=== PATIENT | female | born 1950 | race Two or more races ===

== ENCOUNTER → 2016-02-27 | Outpatient (CLI) | payer BC, OTHER ==
[2016-02-27 08:57] LABS: CHOLESTEROL 233.27 mg/dL (0-200); Direct HDL 108 mg/dL (>40); TRIGLYCERIDES 60 mg/dL (<150)
[2016-02-27 09:08] LABS: DIRECT LDL 88 mg/dL (<100)
== END ==
LOC: OD 07:10
PROVIDERS: ATTEND Internal Medicine
DX: E78.5 Hyperlipidemia, unspecified (principal)
CPT/HCPCS: 36415; 80061

== ENCOUNTER → 2016-06-04 | Outpatient (CLI) | payer BC, OTHER ==
[2016-06-04 08:57] LABS: ANION GAP 12 (5-19); BLOOD UREA NITROGEN 22 mg/dL (7-20); CALCIUM 9.5 mg/dL (8.4-10.2); CARBON DIOXIDE 32 mmol/L (22-30); CHLORIDE 96 mmol/L (98-107); CREATININE RESULT 1.03 mg/dL (0.52-1.25); GLUCOSE 88 mg/dL (75-110); MAGNESIUM 1.9 mg/dL (1.6-2.3); POTASSIUM 4.1 mmol/L (3.6-5.0); SODIUM 140.2 mmol/L (137-145)
== END ==
LOC: OD 07:05
PROVIDERS: ATTEND Internal Medicine Nephrology
DX: N18.2 Chronic kidney disease, stage 2 (mild) (principal); E87.6 Hypokalemia; E83.42 Hypomagnesemia
CPT/HCPCS: 36415; 80048; 83735

== ENCOUNTER → 2016-09-29 | Outpatient (CLI) | payer BC, MEDICARE, OTHER ==
[2016-09-29 08:14] LABS: ABSOLUTE EOSINOPHILS # (AUTO) 0.2 10^3/uL (0.0-0.6); ABSOLUTE LYMPHOCYTES (AUTO) 1.7 10^3/uL (0.5-4.7); ABSOLUTE MONOCYTES (AUTO) 0.3 10^3/uL (0.1-1.4); ABSOLUTE NEUT (AUTO) 1.2 10^3/uL (1.7-8.2); BASOPHILS % (AUTO) 1.1 % (0-2); EOSINOPHILS % (AUTO) 6.2 % (0-6); HEMATOCRIT 31.9 % (36.0-47.0); HEMOGLOBIN 10.6 g/dL (12.0-15.5); HGB HCT DIFFERENCE -0.1; MEAN CORPUSCULAR HEMOGLOBIN 28.8 pg (27.0-33.4); MEAN CORPUSCULAR HGB CONC 33.2 g/dL (32.0-36.0); MEAN CORPUSCULAR VOLUME 87 fl (80-97); MONOCYTES % (AUTO) 9.2 % (3-13); RED BLOOD COUNT 3.68 10^6/uL (3.72-5.28); RED CELL DISTRIBUTION WIDTH 14.3 % (11.5-14.0); SEGMENTED NEUTROPHILS % (AUTO) 34.5 % (42-78); WHITE BLOOD COUNT 3.5 10^3/uL (4.0-10.5)
[2016-09-29 08:43] LABS: ALANINE AMINOTRANSFERASE 24 U/L (9-52); ALBUMIN 4.1 g/dL (3.5-5.0); ALKALINE PHOSPHATASE 71 U/L (38-126); ANION GAP 10 (5-19); ASPARTATE AMINO TRANSFERASE 22 U/L (14-36); BILIRUBIN,DIRECT 0.3 mg/dL (0.0-0.4); BILIRUBIN,TOTAL 0.5 mg/dL (0.2-1.3); BLOOD UREA NITROGEN 15 mg/dL (7-20); CALCIUM 9.4 mg/dL (8.4-10.2); CARBON DIOXIDE 30 mmol/L (22-30); CHLORIDE 99 mmol/L (98-107); CHOLESTEROL 254.35 mg/dL (0-200); CREATININE RESULT 0.98 mg/dL (0.52-1.25); Direct HDL 102 mg/dL (>40); GLUCOSE 84 mg/dL (75-110); MAGNESIUM 1.8 mg/dL (1.6-2.3); POTASSIUM 3.9 mmol/L (3.6-5.0); SODIUM 138.5 mmol/L (137-145); TOTAL PROTEIN 6.8 g/dL (6.3-8.2); TRIGLYCERIDES 80 mg/dL (<150)
[2016-09-29 08:54] LABS: DIRECT LDL 109 mg/dL (<100)
== END ==
LOC: OD 07:08
PROVIDERS: ATTEND Family Medicine Geriatric Medicine
DX: I10 Essential (primary) hypertension (principal); E78.5 Hyperlipidemia, unspecified; E87.6 Hypokalemia; Z79.899 Other long term (current) drug therapy
CPT/HCPCS: 36415; 80053; 80061; 82306; 83735; 84443; 85025

== ENCOUNTER → 2016-10-07 | Outpatient (CLI) | payer BC, MEDICARE, OTHER ==
[2016-10-07 20:42] LABS: FERRITIN 9.23 ng/mL (11.1-264.0)
== END ==
LOC: OD 17:07
PROVIDERS: ATTEND Family Medicine Geriatric Medicine
DX: D64.9 Anemia, unspecified (principal); Z79.899 Other long term (current) drug therapy
CPT/HCPCS: 36415; 82272; 82728; 83540; 83550; 84466; 85045

== ENCOUNTER → 2016-11-30 | Outpatient (CLI) | payer BC, MEDICARE, OTHER ==
[2016-11-30 08:02] LABS: HEMATOCRIT 35.1 % (36.0-47.0); HEMOGLOBIN 11.6 g/dL (12.0-15.5); HGB HCT DIFFERENCE -0.3; MEAN CORPUSCULAR HEMOGLOBIN 27.6 pg (27.0-33.4); MEAN CORPUSCULAR HGB CONC 33.1 g/dL (32.0-36.0); MEAN CORPUSCULAR VOLUME 83 fl (80-97); RED BLOOD COUNT 4.22 10^6/uL (3.72-5.28); RED CELL DISTRIBUTION WIDTH 16.3 % (11.5-14.0); WHITE BLOOD COUNT 4.9 10^3/uL (4.0-10.5)
[2016-11-30 08:07] LABS: APPEARANCE,URINE CLEAR; BILIRUBIN,URINE NEGATIVE (NEGATIVE); GLUCOSE, URINE NEGATIVE (NEGATIVE); KETONES,URINE NEGATIVE (NEGATIVE); LEUKOCYTE ESTERASE,URINE TRACE (NEGATIVE); NITRITE,URINE NEGATIVE (NEGATIVE); PROTEIN,URINE NEGATIVE (NEGATIVE); URINE SPECIFIC GRAVITY 1.011; UROBILINOGEN,URINE NEGATIVE mg/dL (<2.0)
[2016-11-30 08:34] LABS: ANION GAP 10 (5-19); BLOOD UREA NITROGEN 24 mg/dL (7-20); CALCIUM 9.6 mg/dL (8.4-10.2); CARBON DIOXIDE 34 mmol/L (22-30); CHLORIDE 98 mmol/L (98-107); CREATININE RESULT 1.01 mg/dL (0.52-1.25); GLUCOSE 89 mg/dL (75-110); POTASSIUM 3.2 mmol/L (3.6-5.0); SODIUM 142.3 mmol/L (137-145)
== END ==
LOC: OD 07:18
PROVIDERS: ATTEND Internal Medicine Nephrology
DX: I12.9 Hypertensive chronic kidney disease with stage 1 through stage 4 chronic kidney disease, or unspecified chronic kidney disease (principal); N18.2 Chronic kidney disease, stage 2 (mild); E87.6 Hypokalemia
CPT/HCPCS: 36415; 80048; 81001; 83735; 85027

== ENCOUNTER → 2017-01-04 | Outpatient (CLI) | payer BC, MEDICARE, OTHER ==
[2017-01-04 09:01] LABS: ALANINE AMINOTRANSFERASE 51 U/L (9-52); ASPARTATE AMINO TRANSFERASE 69 U/L (14-36); CHOLESTEROL 252.28 mg/dL (0-200); TRIGLYCERIDES 61 mg/dL (<150)
[2017-01-04 09:12] LABS: DIRECT LDL 101 mg/dL (<100)
[2017-01-04 09:19] LABS: ABSOLUTE EOSINOPHILS # (AUTO) 0.2 10^3/uL (0.0-0.6); ABSOLUTE LYMPHOCYTES (AUTO) 1.8 10^3/uL (0.5-4.7); ABSOLUTE MONOCYTES (AUTO) 0.3 10^3/uL (0.1-1.4); ABSOLUTE NEUT (AUTO) 1.8 10^3/uL (1.7-8.2); Direct HDL 129 mg/dL (>40); EOSINOPHILS % (AUTO) 5.3 % (0-6); HEMATOCRIT 37.9 % (36.0-47.0); HEMOGLOBIN 12.6 g/dL (12.0-15.5); HGB HCT DIFFERENCE -0.1; MEAN CORPUSCULAR HEMOGLOBIN 27.9 pg (27.0-33.4); MEAN CORPUSCULAR HGB CONC 33.4 g/dL (32.0-36.0); MEAN CORPUSCULAR VOLUME 84 fl (80-97); RED BLOOD COUNT 4.53 10^6/uL (3.72-5.28); RED CELL DISTRIBUTION WIDTH 16.9 % (11.5-14.0); SEGMENTED NEUTROPHILS % (AUTO) 42.7 % (42-78); WHITE BLOOD COUNT 4.2 10^3/uL (4.0-10.5)
== END ==
LOC: OD 07:34
PROVIDERS: ATTEND Family Medicine Geriatric Medicine
DX: D64.9 Anemia, unspecified (principal); N64.4 Mastodynia; E78.5 Hyperlipidemia, unspecified; Z79.899 Other long term (current) drug therapy
CPT/HCPCS: 36415; 80061; 84450; 84460; 85025

== ENCOUNTER → 2017-02-24 | Outpatient (CLI) | payer BC, MEDICARE, OTHER ==
--- NOTE | 2017-02-24 13:02 | RADIOLOGY REPORT (SQ) ---
EXAM DESCRIPTION: C SP 4 OR 5 VIEWS; SACRUM AND COCCYX; T SPINE AP/LAT; LUMBAR SPINE COMPLETE COMPLETED DATE/TIME: 02/24/2017 12:45 pm REASON FOR STUDY: CERVICALGIA; LOW BACK PAIN COMPARISON: None. FINDINGS: Five views cervical spine: Mild degenerative anterolisthesis at C7-T1. Pronounced disc s pace narrowing at C3-4 C5-6 and C6-7. C7-T1 facet arthropathy with narrowing and sclerosis. Left fo raminal stenosis at C5-6. Right foraminal stenosis at C5-6. Two views thoracic spine: Subtle S-shaped scoliosis. Mild multilevel disc space narrowing with small osteophytes. No fracture or bone lesion. Normal soft tissues. Five views lumbosacral spine including obliques: Mild convex right scoliotic curve. Multilevel disc space narrowing with endplate sclerosis and prominent osteophytes. No pars defect. Facet arthropat hy is present. Three views sacrum and coccyx: SI joints with evidence of degenerative narrowing and sclerosis but n o overt erosions. Probable ankylosis on the right. No sacral fracture or displaced coccyx fracture. IMPRESSION: 1. Cervical spondylosis. 2. Thoracic scoliosis and spondylosis. 3. Lumbar scoliosis a nd spondylosis. 4. SI joint arthropathy, likely degenerative. TECHNICAL DOCUMENTATION: JOB ID: [id number]
== END ==
LOC: OD 12:00
PROVIDERS: ATTEND Family Medicine Geriatric Medicine
DX: M54.2 Cervicalgia (principal); M54.5 Low back pain; M47.892 Other spondylosis, cervical region; M47.894 Other spondylosis, thoracic region; M47.896 Other spondylosis, lumbar region; M41.86 Other forms of scoliosis, lumbar region; M41.84 Other forms of scoliosis, thoracic region
CPT/HCPCS: 72050; 72070; 72110; 72220

== ENCOUNTER → 2017-04-07 | Outpatient (CLI) | payer BC, MEDICARE, OTHER ==
[2017-04-07 08:10] LABS: ABSOLUTE BASOPHILS # (AUTO) 0.1 10^3/uL (0.0-0.2); ABSOLUTE EOSINOPHILS # (AUTO) 0.3 10^3/uL (0.0-0.6); ABSOLUTE LYMPHOCYTES (AUTO) 1.8 10^3/uL (0.5-4.7); ABSOLUTE MONOCYTES (AUTO) 0.3 10^3/uL (0.1-1.4); ABSOLUTE NEUT (AUTO) 1.8 10^3/uL (1.7-8.2); BASOPHILS % (AUTO) 1.3 % (0-2); EOSINOPHILS % (AUTO) 7.5 % (0-6); HEMATOCRIT 36.9 % (36.0-47.0); HEMOGLOBIN 12.4 g/dL (12.0-15.5); LYMPHOCYTES % (AUTO) 41.4 % (13-45); MEAN CORPUSCULAR HEMOGLOBIN 29.3 pg (27.0-33.4); MEAN CORPUSCULAR HGB CONC 33.7 g/dL (32.0-36.0); MEAN CORPUSCULAR VOLUME 87 fl (80-97); MONOCYTES % (AUTO) 7.9 % (3-13); PLATELET COUNT 252 10^3/uL (150-450); RED BLOOD COUNT 4.25 10^6/uL (3.72-5.28); RED CELL DISTRIBUTION WIDTH 13.9 % (11.5-14.0); SEGMENTED NEUTROPHILS % (AUTO) 41.9 % (42-78); TOTAL CELLS COUNTED % (AUTO) 100 %; WHITE BLOOD COUNT 4.4 10^3/uL (4.0-10.5)
[2017-04-07 08:31] LABS: ALANINE AMINOTRANSFERASE 25 U/L (9-52); ASPARTATE AMINO TRANSFERASE 31 U/L (14-36); CHOLESTEROL 231.53 mg/dL (0-200); TRIGLYCERIDES 69 mg/dL (<150)
[2017-04-07 08:43] LABS: DIRECT LDL 103 mg/dL (<100)
== END ==
LOC: OD 07:09
PROVIDERS: ATTEND Family Medicine Geriatric Medicine
DX: I10 Essential (primary) hypertension (principal); E78.5 Hyperlipidemia, unspecified; D50.9 Iron deficiency anemia, unspecified; R79.89 Other specified abnormal findings of blood chemistry; Z79.899 Other long term (current) drug therapy
CPT/HCPCS: 36415; 80061; 84450; 84460; 85025

== ENCOUNTER → 2017-06-04 | Outpatient (CLI) | payer BC, MEDICARE, OTHER ==
[2017-06-04 08:17] LABS: HEMATOCRIT 40.5 % (36.0-47.0); HEMOGLOBIN 13.8 g/dL (12.0-15.5); MEAN CORPUSCULAR HEMOGLOBIN 29.8 pg (27.0-33.4); MEAN CORPUSCULAR VOLUME 88 fl (80-97); PLATELET COUNT 230 10^3/uL (150-450); RED BLOOD COUNT 4.63 10^6/uL (3.72-5.28); RED CELL DISTRIBUTION WIDTH 13.9 % (11.5-14.0); WHITE BLOOD COUNT 4.3 10^3/uL (4.0-10.5)
[2017-06-04 08:57] LABS: ALANINE AMINOTRANSFERASE 39 U/L (9-52); ANION GAP 9 (5-19); ASPARTATE AMINO TRANSFERASE 37 U/L (14-36); BLOOD UREA NITROGEN 23 mg/dL (7-20); CALCIUM 10.1 mg/dL (8.4-10.2); CARBON DIOXIDE 39 mmol/L (22-30); CHLORIDE 92 mmol/L (98-107); CHOLESTEROL 242.15 mg/dL (0-200); GLUCOSE 108 mg/dL (75-110); SODIUM 139.8 mmol/L (137-145); TRIGLYCERIDES 68 mg/dL (<150)
[2017-06-04 09:08] LABS: DIRECT LDL 88 mg/dL (<100)
[2017-06-04 09:21] LABS: POTASSIUM 2.9 mmol/L (3.6-5.0)
[2017-06-04 09:32] LABS: ANION GAP 9 (5-19); BLOOD UREA NITROGEN 23 mg/dL (7-20); CALCIUM 10.1 mg/dL (8.4-10.2); CARBON DIOXIDE 39 mmol/L (22-30); CHLORIDE 92 mmol/L (98-107); GLUCOSE 108 mg/dL (75-110); SODIUM 139.8 mmol/L (137-145)
[2017-06-04 09:35] LABS: POTASSIUM 2.9 mmol/L (3.6-5.0)
== END ==
LOC: OD 07:11
PROVIDERS: ATTEND Internal Medicine Nephrology
DX: I12.9 Hypertensive chronic kidney disease with stage 1 through stage 4 chronic kidney disease, or unspecified chronic kidney disease (principal); N18.2 Chronic kidney disease, stage 2 (mild); E83.42 Hypomagnesemia; E87.6 Hypokalemia; R06.02 Shortness of breath; E78.5 Hyperlipidemia, unspecified; Z79.899 Other long term (current) drug therapy
CPT/HCPCS: 36415; 80048; 80061; 83735; 83880; 84443; 84450; 84460; 85027

== ENCOUNTER → 2017-06-07 | Outpatient (CLI) | payer BC, MEDICARE, OTHER | LOC: OD 07:20 | PROVIDERS: ATTEND Family Medicine Geriatric Medicine | DX: E87.6 Hypokalemia (principal) | CPT/HCPCS: 36415; 83735; 84132 ==

== ENCOUNTER → 2017-06-11 | Outpatient (CLI) | payer OTHER, MEDICARE ==
--- NOTE | 2017-06-11 15:46 | RADIOLOGY REPORT (SQ) ---
EXAM DESCRIPTION: CT ABD/PELVIS NO ORAL OR IV COMPLETED DATE/TIME: 06/11/2017 2:43 pm REASON FOR STUDY: R10.9 UNSPECIFIED ABDOMINAL PAIN R10.9 UNSPECIFIED ABDOMINAL PAIN COMPARISON: None. TECHNIQUE: CT scan of the abdomen and pelvis performed without intravenous or oral contrast. Images reviewed with lung, soft tissue, and bone windows. Reconstructed coronal and sagittal MPR images revi ewed. All images stored on PACS. All CT scanners at this facility use dose modulation, iterative reconstruction, and/or weight based d osing when appropriate to reduce radiation dose to as low as reasonably achievable (ALARA). [facility]: Dose Right [facility]: CareDose [facility]: Dose Right [facility]: Teradose 4D [facility]: Smart iSites RADIATION DOSE: CT Rad equipment meets quality standard of care and radiation dose reduction techniq ues were employed. CTDIvol: 6.0 mGy. DLP: 304 mGy-cm.mGy. LIMITATIONS: None. FINDINGS: LOWER CHEST: No significant findings. No nodules or infiltrates. NON-CONTRASTED LIVER, SPLEEN, ADRENALS: Evaluation limited by lack of IV contrast. No identified sign ificant masses. PANCREAS: No masses. No peripancreatic inflammatory changes. GALLBLADDER: Surgically absent. RIGHT KIDNEY AND URETER: No suspicious masses. Assessment limited by lack of IV contrast. No signif icant calcifications. No hydronephrosis or hydroureter. LEFT KIDNEY AND URETER: No suspicious masses. Assessment limited by lack of IV contrast. No signifi cant calcifications. No hydronephrosis or hydroureter. AORTA AND RETROPERITONEUM: No aneurysm. No retroperitoneal masses or adenopathy. BOWEL AND PERITONEAL CAVITY: No obvious masses or inflammatory changes. No free fluid. APPENDIX: Not visualized. PELVIS, BLADDER, AND ABDOMINAL WALL:No abnormal masses. No free fluid. Bladder normal. BONES: No significant findings. OTHER: No other significant finding. IMPRESSION: NO ACUTE PROCESS IN THE ABDOMEN OR PELVIS. COMMENT: Quality ID # [id number]: Final reports with documentation of one or more dose reduction techniques (e.g., Automated exposure control, adjustment of the mA and/or kV according to patient size, use of iterative reconstruction technique) TECHNICAL DOCUMENTATION: JOB ID: [id number] [employer]- All Rights Reserved Reading location - IP/workstation name: [facility], [facility]
== END ==
LOC: RAD 14:22
PROVIDERS: ATTEND Family Medicine Geriatric Medicine
DX: R10.9 Unspecified abdominal pain (principal)
CPT/HCPCS: 74176

== ENCOUNTER → 2017-06-16 | Outpatient (CLI) | payer OTHER, MEDICARE ==
[2017-06-16 08:52] LABS: ANION GAP 12 (5-19); BLOOD UREA NITROGEN 25 mg/dL (7-20); CALCIUM 9.4 mg/dL (8.4-10.2); CARBON DIOXIDE 36 mmol/L (22-30); CHLORIDE 98 mmol/L (98-107); GLUCOSE 97 mg/dL (75-110); POTASSIUM 3.6 mmol/L (3.6-5.0); SODIUM 146.2 mmol/L (137-145)
== END ==
LOC: OD 07:25
PROVIDERS: ATTEND Internal Medicine Nephrology
DX: N18.2 Chronic kidney disease, stage 2 (mild) (principal); E87.6 Hypokalemia; E83.42 Hypomagnesemia
CPT/HCPCS: 36415; 80048; 83735

== ENCOUNTER → 2017-06-23 | Outpatient (CLI) | payer BC, MEDICARE, OTHER ==
[2017-06-23 08:50] LABS: ANION GAP 11 (5-19); BLOOD UREA NITROGEN 21 mg/dL (7-20); CALCIUM 9.4 mg/dL (8.4-10.2); CARBON DIOXIDE 27 mmol/L (22-30); CHLORIDE 104 mmol/L (98-107); GLUCOSE 103 mg/dL (75-110); POTASSIUM 3.8 mmol/L (3.6-5.0); SODIUM 142.1 mmol/L (137-145)
[2017-06-23 09:45] LABS: ALANINE AMINOTRANSFERASE 34 U/L (9-52); ASPARTATE AMINO TRANSFERASE 30 U/L (14-36); CHOLESTEROL 180.82 mg/dL (0-200); POTASSIUM 3.8 mmol/L (3.6-5.0); TRIGLYCERIDES 78 mg/dL (<150)
[2017-06-23 09:56] LABS: DIRECT LDL 58 mg/dL (<100)
== END ==
LOC: OD 07:09
PROVIDERS: ATTEND Internal Medicine Nephrology
DX: N18.2 Chronic kidney disease, stage 2 (mild) (principal); E87.6 Hypokalemia; E83.42 Hypomagnesemia; E78.5 Hyperlipidemia, unspecified
CPT/HCPCS: 36415; 80048; 80061; 83735; 84132; 84450; 84460

== ENCOUNTER → 2017-06-30 | Outpatient (CLI) | payer BC, MEDICARE, OTHER ==
[2017-06-30 08:42] LABS: ANION GAP 7 (5-19); BLOOD UREA NITROGEN 12 mg/dL (7-20); CALCIUM 9.5 mg/dL (8.4-10.2); CARBON DIOXIDE 28 mmol/L (22-30); CHLORIDE 107 mmol/L (98-107); GLUCOSE 83 mg/dL (75-110); POTASSIUM 4.4 mmol/L (3.6-5.0); SODIUM 142.2 mmol/L (137-145)
== END ==
LOC: OD 07:07
PROVIDERS: ATTEND Internal Medicine Nephrology
DX: N18.2 Chronic kidney disease, stage 2 (mild) (principal); E87.6 Hypokalemia; E83.42 Hypomagnesemia
CPT/HCPCS: 36415; 80048; 83735

== ENCOUNTER → 2017-07-07 | Outpatient (CLI) | payer BC, MEDICARE, OTHER ==
[2017-07-07 09:07] LABS: ANION GAP 9 (5-19); BLOOD UREA NITROGEN 18 mg/dL (7-20); CALCIUM 9.3 mg/dL (8.4-10.2); CARBON DIOXIDE 31 mmol/L (22-30); CHLORIDE 104 mmol/L (98-107); GLUCOSE 81 mg/dL (75-110); POTASSIUM 3.8 mmol/L (3.6-5.0); SODIUM 144.2 mmol/L (137-145)
== END ==
LOC: OD 07:14
PROVIDERS: ATTEND Internal Medicine Nephrology
DX: N18.2 Chronic kidney disease, stage 2 (mild) (principal); E87.6 Hypokalemia; E83.42 Hypomagnesemia
CPT/HCPCS: 36415; 80048; 83735

== ENCOUNTER → 2017-07-20 | Outpatient (CLI) | payer BC, MEDICARE, OTHER ==
[2017-07-20 08:26] LABS: POTASSIUM 3.7 mmol/L (3.6-5.0)
== END ==
LOC: OD 07:11
PROVIDERS: ATTEND Internal Medicine Nephrology
DX: I12.9 Hypertensive chronic kidney disease with stage 1 through stage 4 chronic kidney disease, or unspecified chronic kidney disease (principal); N18.2 Chronic kidney disease, stage 2 (mild); E87.5 Hyperkalemia; E83.42 Hypomagnesemia
CPT/HCPCS: 36415; 83735; 84132

== ENCOUNTER → 2017-08-03 | Outpatient (CLI) | payer BC, MEDICARE, OTHER ==
[2017-08-03 09:01] LABS: POTASSIUM 4.3 mmol/L (3.6-5.0)
== END ==
LOC: OD 07:24
PROVIDERS: ATTEND Internal Medicine Nephrology
DX: I12.9 Hypertensive chronic kidney disease with stage 1 through stage 4 chronic kidney disease, or unspecified chronic kidney disease (principal); N18.2 Chronic kidney disease, stage 2 (mild); E87.5 Hyperkalemia; E83.42 Hypomagnesemia
CPT/HCPCS: 36415; 83735; 84132

== ENCOUNTER → 2017-08-17 | Outpatient (CLI) | payer BC, MEDICARE, OTHER ==
[2017-08-17 09:10] LABS: POTASSIUM 4.2 mmol/L (3.6-5.0)
== END ==
LOC: OD 07:25
PROVIDERS: ATTEND Internal Medicine Nephrology
DX: I12.9 Hypertensive chronic kidney disease with stage 1 through stage 4 chronic kidney disease, or unspecified chronic kidney disease (principal); N18.2 Chronic kidney disease, stage 2 (mild); E87.5 Hyperkalemia; E83.42 Hypomagnesemia
CPT/HCPCS: 36415; 83735; 84132

== ENCOUNTER → 2017-08-31 | Outpatient (CLI) | payer BC, MEDICARE, OTHER ==
[2017-08-31 08:24] LABS: HEMATOCRIT 36.8 % (36.0-47.0); HEMOGLOBIN 12.7 g/dL (12.0-15.5); MEAN CORPUSCULAR HEMOGLOBIN 30.5 pg (27.0-33.4); MEAN CORPUSCULAR HGB CONC 34.4 g/dL (32.0-36.0); MEAN CORPUSCULAR VOLUME 89 fl (80-97); PLATELET COUNT 218 10^3/uL (150-450); RED BLOOD COUNT 4.15 10^6/uL (3.72-5.28); RED CELL DISTRIBUTION WIDTH 13.8 % (11.5-14.0); WHITE BLOOD COUNT 4.6 10^3/uL (4.0-10.5)
[2017-08-31 08:34] LABS: APPEARANCE,URINE TURBID; BILIRUBIN,URINE NEGATIVE (NEGATIVE); GLUCOSE, URINE NEGATIVE (NEGATIVE); KETONES,URINE NEGATIVE (NEGATIVE); LEUKOCYTE ESTERASE,URINE SMALL (NEGATIVE); NITRITE,URINE NEGATIVE (NEGATIVE); PROTEIN,URINE NEGATIVE (NEGATIVE); URINE SPECIFIC GRAVITY 1.025; UROBILINOGEN,URINE NEGATIVE mg/dL (<2.0)
[2017-08-31 08:43] LABS: COLOR,URINE YELLOW
[2017-08-31 08:44] LABS: ALANINE AMINOTRANSFERASE 33 U/L (9-52); ALBUMIN 3.8 g/dL (3.5-5.0); ALKALINE PHOSPHATASE 72 U/L (38-126); ANION GAP 9 (5-19); ASPARTATE AMINO TRANSFERASE 39 U/L (14-36); BILIRUBIN,DIRECT 0.2 mg/dL (0.0-0.4); BILIRUBIN,TOTAL 0.6 mg/dL (0.2-1.3); BLOOD UREA NITROGEN 15 mg/dL (7-20); CARBON DIOXIDE 29 mmol/L (22-30); CHLORIDE 103 mmol/L (98-107); GLUCOSE 81 mg/dL (75-110); POTASSIUM 3.6 mmol/L (3.6-5.0); SODIUM 140.9 mmol/L (137-145); TOTAL PROTEIN 6.4 g/dL (6.3-8.2)
== END ==
LOC: OD 07:10
PROVIDERS: ATTEND Internal Medicine Nephrology
DX: I12.9 Hypertensive chronic kidney disease with stage 1 through stage 4 chronic kidney disease, or unspecified chronic kidney disease (principal); N18.2 Chronic kidney disease, stage 2 (mild); E87.5 Hyperkalemia
CPT/HCPCS: 36415; 80053; 81001; 83735; 85027

== ENCOUNTER → 2017-10-02 | Outpatient (CLI) | payer BC, MEDICARE, OTHER | LOC: OD 10:43 | PROVIDERS: ATTEND Internal Medicine Nephrology | DX: N18.2 Chronic kidney disease, stage 2 (mild) (principal); E87.5 Hyperkalemia; Z53.9 Procedure and treatment not carried out, unspecified reason ==

== ENCOUNTER → 2017-10-04 | Outpatient (CLI) | payer BC, MEDICARE, OTHER | LOC: OD 12:04 | PROVIDERS: ATTEND Internal Medicine Nephrology | DX: N18.2 Chronic kidney disease, stage 2 (mild) (principal); E87.5 Hyperkalemia | CPT/HCPCS: 36415; 84132 ==

== ENCOUNTER → 2017-10-15 | Outpatient (CLI) | payer MEDICARE, OTHER, BC | LOC: LAB 08:14 | PROVIDERS: ATTEND Internal Medicine | DX: N19 Unspecified kidney failure (principal) | CPT/HCPCS: 36415; 82565 ==

== ENCOUNTER → 2017-12-02 | Outpatient (CLI) | payer BC, OTHER, MEDICARE ==
[2017-12-02 08:23] LABS: ABSOLUTE EOSINOPHILS # (AUTO) 0.2 10^3/uL (0.0-0.6); ABSOLUTE LYMPHOCYTES (AUTO) 1.5 10^3/uL (0.5-4.7); ABSOLUTE MONOCYTES (AUTO) 0.3 10^3/uL (0.1-1.4); ABSOLUTE NEUT (AUTO) 1.6 10^3/uL (1.7-8.2); BASOPHILS % (AUTO) 0.8 % (0-2); EOSINOPHILS % (AUTO) 4.9 % (0-6); HEMATOCRIT 39.9 % (36.0-47.0); HEMOGLOBIN 13.6 g/dL (12.0-15.5); LYMPHOCYTES % (AUTO) 40.6 % (13-45); MEAN CORPUSCULAR HEMOGLOBIN 30.2 pg (27.0-33.4); MEAN CORPUSCULAR VOLUME 89 fl (80-97); MONOCYTES % (AUTO) 9.2 % (3-13); PLATELET COUNT 222 10^3/uL (150-450); RED CELL DISTRIBUTION WIDTH 13.9 % (11.5-14.0); SEGMENTED NEUTROPHILS % (AUTO) 44.5 % (42-78); TOTAL CELLS COUNTED % (AUTO) 100 %; WHITE BLOOD COUNT 3.6 10^3/uL (4.0-10.5)
== END ==
LOC: OD 07:25
PROVIDERS: ATTEND Internal Medicine
DX: D64.9 Anemia, unspecified (principal); E03.9 Hypothyroidism, unspecified
CPT/HCPCS: 36415; 84443; 85025

== ENCOUNTER → 2017-12-04 | Outpatient (CLI) | payer BC, OTHER, MEDICARE | LOC: OD 08:05 | PROVIDERS: ATTEND Internal Medicine | DX: N18.2 Chronic kidney disease, stage 2 (mild) (principal); E87.5 Hyperkalemia | CPT/HCPCS: 36415; 84132 ==

== ENCOUNTER → 2017-12-30 | Outpatient (CLI) | payer BC, MEDICARE, OTHER ==
[2017-12-30 08:37] LABS: CHOLESTEROL 217.08 mg/dL (0-200); TRIGLYCERIDES 81 mg/dL (<150)
[2017-12-30 08:47] LABS: DIRECT LDL 103 mg/dL (<100)
== END ==
LOC: OD 07:11
PROVIDERS: ATTEND Internal Medicine
DX: E03.9 Hypothyroidism, unspecified (principal); E78.5 Hyperlipidemia, unspecified; E24.9 Cushing's syndrome, unspecified
CPT/HCPCS: 36415; 80061; 82024; 82533; 84443

== ENCOUNTER → 2018-01-04 | Outpatient (CLI) | payer BC, MEDICARE, OTHER | LOC: OD 07:13 | PROVIDERS: ATTEND Internal Medicine | DX: N18.2 Chronic kidney disease, stage 2 (mild) (principal); E87.5 Hyperkalemia | CPT/HCPCS: 36415; 84132 ==

== ENCOUNTER → 2018-02-03 | Outpatient (CLI) | payer BC, MEDICARE, OTHER | LOC: OD 07:12 | PROVIDERS: ATTEND Internal Medicine Nephrology | DX: N18.2 Chronic kidney disease, stage 2 (mild) (principal); E87.5 Hyperkalemia | CPT/HCPCS: 36415; 84132 ==

== ENCOUNTER → 2018-03-03 | Outpatient (CLI) | payer BC, MEDICARE, OTHER ==
[2018-03-03 08:32] LABS: APPEARANCE,URINE CLEAR; BILIRUBIN,URINE NEGATIVE (NEGATIVE); COLOR,URINE STRAW; GLUCOSE, URINE NEGATIVE (NEGATIVE); KETONES,URINE NEGATIVE (NEGATIVE); LEUKOCYTE ESTERASE,URINE NEGATIVE (NEGATIVE); NITRITE,URINE NEGATIVE (NEGATIVE); PROTEIN,URINE NEGATIVE (NEGATIVE); URINE SPECIFIC GRAVITY 1.006; UROBILINOGEN,URINE NEGATIVE mg/dL (<2.0)
[2018-03-03 08:43] LABS: HEMATOCRIT 38.9 % (36.0-47.0); MEAN CORPUSCULAR HEMOGLOBIN 29.8 pg (27.0-33.4); MEAN CORPUSCULAR HGB CONC 33.5 g/dL (32.0-36.0); MEAN CORPUSCULAR VOLUME 89 fl (80-97); PLATELET COUNT 216 10^3/uL (150-450); RED BLOOD COUNT 4.37 10^6/uL (3.72-5.28); RED CELL DISTRIBUTION WIDTH 13.8 % (11.5-14.0); WHITE BLOOD COUNT 3.8 10^3/uL (4.0-10.5)
[2018-03-03 09:19] LABS: CHOLESTEROL 202.67 mg/dL (0-200); TRIGLYCERIDES 55 mg/dL (<150)
[2018-03-03 09:21] LABS: ANION GAP 8 (5-19); BLOOD UREA NITROGEN 9 mg/dL (7-20); CALCIUM 8.9 mg/dL (8.4-10.2); CARBON DIOXIDE 34 mmol/L (22-30); CHLORIDE 98 mmol/L (98-107); GLUCOSE 90 mg/dL (75-110); POTASSIUM 3.3 mmol/L (3.6-5.0); SODIUM 139.5 mmol/L (137-145)
[2018-03-03 09:34] LABS: DIRECT LDL 72 mg/dL (<100)
== END ==
LOC: OD 07:09
PROVIDERS: ATTEND Internal Medicine Nephrology
DX: E83.42 Hypomagnesemia (principal); E87.6 Hypokalemia; N18.2 Chronic kidney disease, stage 2 (mild); I12.9 Hypertensive chronic kidney disease with stage 1 through stage 4 chronic kidney disease, or unspecified chronic kidney disease
CPT/HCPCS: 36415; 80048; 80061; 81001; 83735; 85027

== ENCOUNTER → 2018-04-09 | Outpatient (CLI) | payer MEDICARE, BC, OTHER ==
[2018-04-09 10:05] LABS: ANION GAP 8 (5-19); BLOOD UREA NITROGEN 11 mg/dL (7-20); CALCIUM 8.6 mg/dL (8.4-10.2); CARBON DIOXIDE 30 mmol/L (22-30); CHLORIDE 103 mmol/L (98-107); GLUCOSE 80 mg/dL (75-110); POTASSIUM 3.9 mmol/L (3.6-5.0)
== END ==
LOC: OD 08:09
PROVIDERS: ATTEND Internal Medicine Nephrology
DX: Z00.00 Encounter for general adult medical examination without abnormal findings (principal); N18.2 Chronic kidney disease, stage 2 (mild); E83.42 Hypomagnesemia; E87.6 Hypokalemia
CPT/HCPCS: 36415; 80048; 83735

== ENCOUNTER → 2018-06-02 | Outpatient (CLI) | payer BC, MEDICARE, OTHER ==
[2018-06-02 08:21] LABS: CHOLESTEROL 193.49 mg/dL (0-200); TRIGLYCERIDES 63 mg/dL (<150)
[2018-06-02 08:32] LABS: DIRECT LDL 73 mg/dL (<100)
== END ==
LOC: OD 07:09
PROVIDERS: ATTEND Internal Medicine
DX: E78.5 Hyperlipidemia, unspecified (principal)
CPT/HCPCS: 36415; 80061

== ENCOUNTER → 2018-06-30 | Outpatient (CLI) | payer BC, MEDICARE, OTHER ==
--- NOTE | 2018-06-30 08:46 | WOMENS IMAGING REPORT ---
EXAM DESCRIPTION: U/S BREAST UNILAT LIMITED COMPLETED DATE/TIME: 06/30/2018 7:55 am REASON FOR STUDY: R22.9;Z98.890 LEFT BREAST; R22.9;Z98.890 RIGHT BREAST R22.9 LOCALIZED SWELLING, M ASS AND LUMP, UNSPECIFIED COMPARISON: None. TECHNIQUE: Real-time and static grayscale imaging performed of the right and left breast targeted to the area of clinical/mammographic concern. Selected color Doppler images recorded. LIMITATIONS: None. FINDINGS: MASS: No mass identified. Normal glandular tissue. OTHER: No other significant finding. IMPRESSION: No suspicious findings detected by ultrasound. BIRAD: Negative. RECOMMENDATION: RECOMMENDED FOLLOW-UP: Follow-up as clinically indicated. COMMENT: The [employer] (A[employer]) has developed recommendations for screening MRI of the breasts in certain patient populations, to be used in conjunction with mammography. Breast MRI s urveillance may be appropriate for women with more than 20% lifetime risk of developing breast cancer as determined by genetic testing, significant family history of the disease, or history of mantle r adiation for Hodgkins Disease. ACR Practice Guidelines 2008. TECHNICAL DOCUMENTATION: JOB ID: [id number] [employer]- All Rights Reserved Reading location - IP/workstation name: [email or web address]
--- NOTE | 2018-06-30 08:46 | WOMENS IMAGING REPORT ---
EXAM DESCRIPTION: U/S BREAST UNILAT LIMITED COMPLETED DATE/TIME: 06/30/2018 7:55 am REASON FOR STUDY: R22.9;Z98.890 LEFT BREAST; R22.9;Z98.890 RIGHT BREAST R22.9 LOCALIZED SWELLING, M ASS AND LUMP, UNSPECIFIED COMPARISON: None. TECHNIQUE: Real-time and static grayscale imaging performed of the right and left breast targeted to the area of clinical/mammographic concern. Selected color Doppler images recorded. LIMITATIONS: None. FINDINGS: MASS: No mass identified. Normal glandular tissue. OTHER: No other significant finding. IMPRESSION: No suspicious findings detected by ultrasound. BIRAD: Negative. RECOMMENDATION: RECOMMENDED FOLLOW-UP: Follow-up as clinically indicated. COMMENT: The [employer] (A[employer]) has developed recommendations for screening MRI of the breasts in certain patient populations, to be used in conjunction with mammography. Breast MRI s urveillance may be appropriate for women with more than 20% lifetime risk of developing breast cancer as determined by genetic testing, significant family history of the disease, or history of mantle r adiation for Hodgkins Disease. [employer] Practice Guidelines 2008. TECHNICAL DOCUMENTATION: JOB ID: [id number] [employer]- All Rights Reserved Reading location - IP/workstation name: [email or web address]
== END ==
LOC: WI 08:16
PROVIDERS: ATTEND Surgery
DX: R22.9 Localized swelling, mass and lump, unspecified (principal); Z98.890 Other specified postprocedural states
CPT/HCPCS: 76642

== ENCOUNTER → 2018-08-25 | Outpatient (CLI) | payer BC, MEDICARE, OTHER ==
[2018-08-25 08:27] LABS: APPEARANCE,URINE CLEAR; BILIRUBIN,URINE NEGATIVE (NEGATIVE); COLOR,URINE YELLOW; GLUCOSE, URINE NEGATIVE (NEGATIVE); KETONES,URINE NEGATIVE (NEGATIVE); LEUKOCYTE ESTERASE,URINE NEGATIVE (NEGATIVE); NITRITE,URINE NEGATIVE (NEGATIVE); PROTEIN,URINE NEGATIVE (NEGATIVE); URINE SPECIFIC GRAVITY 1.021; UROBILINOGEN,URINE NEGATIVE mg/dL (<2.0)
[2018-08-25 08:32] LABS: TRIGLYCERIDES 70 mg/dL (<150)
[2018-08-25 08:33] LABS: ALANINE AMINOTRANSFERASE 23 U/L (9-52); ALBUMIN 3.7 g/dL (3.5-5.0); ALKALINE PHOSPHATASE 83 U/L (38-126); ASPARTATE AMINO TRANSFERASE 27 U/L (14-36); BILIRUBIN,DIRECT 0.2 mg/dL (0.0-0.4); BILIRUBIN,TOTAL 0.5 mg/dL (0.2-1.3); BLOOD UREA NITROGEN 10 mg/dL (7-20); CALCIUM 8.9 mg/dL (8.4-10.2); CHLORIDE 102 mmol/L (98-107); GLUCOSE 83 mg/dL (75-110); TOTAL PROTEIN 6.2 g/dL (6.3-8.2)
[2018-08-25 08:40] LABS: ABSOLUTE EOSINOPHILS # (AUTO) 0.3 10^3/uL (0.0-0.6); ABSOLUTE LYMPHOCYTES (AUTO) 2.1 10^3/uL (0.5-4.7); ABSOLUTE MONOCYTES (AUTO) 0.3 10^3/uL (0.1-1.4); ABSOLUTE NEUT (AUTO) 2.3 10^3/uL (1.7-8.2); BASOPHILS % (AUTO) 0.9 % (0-2); EOSINOPHILS % (AUTO) 5.5 % (0-6); HEMATOCRIT 38.5 % (36.0-47.0); HEMOGLOBIN 12.8 g/dL (12.0-15.5); LYMPHOCYTES % (AUTO) 41.5 % (13-45); MEAN CORPUSCULAR HGB CONC 33.3 g/dL (32.0-36.0); MEAN CORPUSCULAR VOLUME 90 fl (80-97); MONOCYTES % (AUTO) 6.6 % (3-13); PLATELET COUNT 199 10^3/uL (150-450); RED BLOOD COUNT 4.27 10^6/uL (3.72-5.28); RED CELL DISTRIBUTION WIDTH 13.8 % (11.5-14.0); SEGMENTED NEUTROPHILS % (AUTO) 45.5 % (42-78); TOTAL CELLS COUNTED % (AUTO) 100 %
[2018-08-25 08:42] LABS: CARBON DIOXIDE 31 mmol/L (22-30); DIRECT LDL 98 mg/dL (<100); POTASSIUM 4.2 mmol/L (3.6-5.0); SODIUM 137.2 mmol/L (137-145)
[2018-08-25 08:46] LABS: ANION GAP 4 (5-19)
== END ==
LOC: OD 07:14
PROVIDERS: ATTEND Internal Medicine
DX: N18.2 Chronic kidney disease, stage 2 (mild) (principal); E83.42 Hypomagnesemia; E87.6 Hypokalemia; E78.5 Hyperlipidemia, unspecified
CPT/HCPCS: 36415; 80053; 80061; 81001; 83735; 84132; 84443; 84480; 85025

== ENCOUNTER → 2019-02-04 | Outpatient (CLI) | payer BC, MEDICARE, OTHER ==
[2019-02-04 10:17] LABS: APPEARANCE,URINE CLEAR; BILIRUBIN,URINE NEGATIVE (NEGATIVE); COLOR,URINE YELLOW; GLUCOSE, URINE NEGATIVE (NEGATIVE); KETONES,URINE NEGATIVE (NEGATIVE); LEUKOCYTE ESTERASE,URINE NEGATIVE (NEGATIVE); NITRITE,URINE NEGATIVE (NEGATIVE); PROTEIN,URINE NEGATIVE (NEGATIVE); URINE SPECIFIC GRAVITY 1.005; UROBILINOGEN,URINE NEGATIVE mg/dL (<2.0)
[2019-02-04 10:37] LABS: ABSOLUTE EOSINOPHILS # (AUTO) 0.2 10^3/uL (0.0-0.6); ABSOLUTE LYMPHOCYTES (AUTO) 1.4 10^3/uL (0.5-4.7); ABSOLUTE MONOCYTES (AUTO) 0.2 10^3/uL (0.1-1.4); ABSOLUTE NEUT (AUTO) 1.8 10^3/uL (1.7-8.2); EOSINOPHILS % (AUTO) 4.8 % (0-6); HEMATOCRIT 39.3 % (36.0-47.0); HEMOGLOBIN 13.2 g/dL (12.0-15.5); LYMPHOCYTES % (AUTO) 39.2 % (13-45); MEAN CORPUSCULAR HEMOGLOBIN 30.2 pg (27.0-33.4); MEAN CORPUSCULAR HGB CONC 33.6 g/dL (32.0-36.0); MEAN CORPUSCULAR VOLUME 90 fl (80-97); MONOCYTES % (AUTO) 6.8 % (3-13); PLATELET COUNT 209 10^3/uL (150-450); RED BLOOD COUNT 4.38 10^6/uL (3.72-5.28); RED CELL DISTRIBUTION WIDTH 13.2 % (11.5-14.0); SEGMENTED NEUTROPHILS % (AUTO) 48.2 % (42-78); TOTAL CELLS COUNTED % (AUTO) 100 %; WHITE BLOOD COUNT 3.7 10^3/uL (4.0-10.5)
[2019-02-04 10:51] LABS: ALBUMIN 3.9 g/dL (3.5-5.0); ANION GAP 9 (5-19); BLOOD UREA NITROGEN 13 mg/dL (7-20); CALCIUM 9.7 mg/dL (8.4-10.2); CARBON DIOXIDE 31 mmol/L (22-30); CHLORIDE 100 mmol/L (98-107); GLUCOSE 87 mg/dL (75-110); POTASSIUM 3.8 mmol/L (3.6-5.0)
== END ==
LOC: OD 08:07
PROVIDERS: ATTEND Internal Medicine Nephrology
DX: I12.9 Hypertensive chronic kidney disease with stage 1 through stage 4 chronic kidney disease, or unspecified chronic kidney disease (principal); N18.2 Chronic kidney disease, stage 2 (mild); E87.6 Hypokalemia; E83.42 Hypomagnesemia
CPT/HCPCS: 36415; 80069; 81001; 83735; 85025

== ENCOUNTER → 2019-03-04 | Outpatient (CLI) | payer BC, MEDICARE, OTHER ==
[2019-03-04 09:34] LABS: ABSOLUTE EOSINOPHILS # (AUTO) 0.2 10^3/uL (0.0-0.6); ABSOLUTE LYMPHOCYTES (AUTO) 1.4 10^3/uL (0.5-4.7); ABSOLUTE MONOCYTES (AUTO) 0.3 10^3/uL (0.1-1.4); ABSOLUTE NEUT (AUTO) 1.9 10^3/uL (1.7-8.2); BASOPHILS % (AUTO) 1.1 % (0-2); EOSINOPHILS % (AUTO) 5.2 % (0-6); HEMATOCRIT 39.8 % (36.0-47.0); HEMOGLOBIN 13.3 g/dL (12.0-15.5); LYMPHOCYTES % (AUTO) 36.4 % (13-45); MEAN CORPUSCULAR HEMOGLOBIN 30.3 pg (27.0-33.4); MEAN CORPUSCULAR HGB CONC 33.4 g/dL (32.0-36.0); MEAN CORPUSCULAR VOLUME 91 fl (80-97); MONOCYTES % (AUTO) 7.6 % (3-13); PLATELET COUNT 195 10^3/uL (150-450); RED CELL DISTRIBUTION WIDTH 13.5 % (11.5-14.0); SEGMENTED NEUTROPHILS % (AUTO) 49.7 % (42-78); TOTAL CELLS COUNTED % (AUTO) 100 %; WHITE BLOOD COUNT 3.7 10^3/uL (4.0-10.5)
[2019-03-04 09:56] LABS: ANION GAP 6 (5-19); BLOOD UREA NITROGEN 15 mg/dL (7-20); CALCIUM 9.5 mg/dL (8.4-10.2); CARBON DIOXIDE 33 mmol/L (22-30); CHLORIDE 101 mmol/L (98-107); GLUCOSE 87 mg/dL (75-110); POTASSIUM 4.3 mmol/L (3.6-5.0)
== END ==
LOC: OD 08:11
PROVIDERS: ATTEND Family Medicine Geriatric Medicine
DX: E87.6 Hypokalemia (principal); E83.42 Hypomagnesemia; Z79.899 Other long term (current) drug therapy
CPT/HCPCS: 36415; 80048; 83735; 85025

== ENCOUNTER → 2019-08-09 | Outpatient (CLI) | payer BC, MEDICARE, OTHER ==
[2019-08-09 08:27] LABS: ABSOLUTE EOSINOPHILS # (AUTO) 0.2 10^3/uL (0.0-0.6); ABSOLUTE LYMPHOCYTES (AUTO) 1.3 10^3/uL (0.5-4.7); ABSOLUTE MONOCYTES (AUTO) 0.3 10^3/uL (0.1-1.4); ABSOLUTE NEUT (AUTO) 1.9 10^3/uL (1.7-8.2); BASOPHILS % (AUTO) 1.1 % (0-2); EOSINOPHILS % (AUTO) 5.4 % (0-6); HEMATOCRIT 39.5 % (36.0-47.0); LYMPHOCYTES % (AUTO) 33.5 % (13-45); MEAN CORPUSCULAR VOLUME 91 fl (80-97); PLATELET COUNT 165 10^3/uL (150-450); RED BLOOD COUNT 4.34 10^6/uL (3.72-5.28); RED CELL DISTRIBUTION WIDTH 13.6 % (11.5-14.0); TOTAL CELLS COUNTED % (AUTO) 100 %; WHITE BLOOD COUNT 3.8 10^3/uL (4.0-10.5)
[2019-08-09 08:54] LABS: CHOLESTEROL 214.02 mg/dL (0-200); TRIGLYCERIDES 90 mg/dL (<150)
[2019-08-09 09:05] LABS: DIRECT LDL 77 mg/dL (<100)
== END ==
LOC: OD 07:06
PROVIDERS: ATTEND Family Medicine Geriatric Medicine
DX: E78.5 Hyperlipidemia, unspecified (principal); E87.6 Hypokalemia; Z79.899 Other long term (current) drug therapy
CPT/HCPCS: 36415; 80061; 84460; 85025

== ENCOUNTER → 2019-10-14 | Outpatient (CLI) | payer BC, MEDICARE, OTHER ==
[2019-10-14 10:26] LABS: CHOLESTEROL 165.72 mg/dL (0-200); POTASSIUM 3.9 mmol/L (3.6-5.0); TRIGLYCERIDES 55 mg/dL (<150)
[2019-10-14 10:37] LABS: DIRECT LDL 55 mg/dL (<100)
== END ==
LOC: OD 09:01
PROVIDERS: ATTEND Family Medicine Geriatric Medicine
DX: E55.9 Vitamin D deficiency, unspecified (principal); E87.5 Hyperkalemia; E83.41 Hypermagnesemia; R78.5 Finding of other psychotropic drug in blood; Z79.899 Other long term (current) drug therapy
CPT/HCPCS: 36415; 80061; 82306; 83735; 84132; 84460

== ENCOUNTER → 2020-01-12 | Outpatient (CLI) | payer BC, MEDICARE, OTHER ==
[2020-01-12 08:50] LABS: ABSOLUTE EOSINOPHILS # (AUTO) 0.2 10^3/uL (0.0-0.6); ABSOLUTE LYMPHOCYTES (AUTO) 1.3 10^3/uL (0.5-4.7); ABSOLUTE MONOCYTES (AUTO) 0.4 10^3/uL (0.1-1.4); ABSOLUTE NEUT (AUTO) 2.1 10^3/uL (1.7-8.2); BASOPHILS % (AUTO) 0.7 % (0-2); EOSINOPHILS % (AUTO) 4.8 % (0-6); HEMATOCRIT 40.2 % (36.0-47.0); HEMOGLOBIN 13.1 g/dL (12.0-15.5); LYMPHOCYTES % (AUTO) 32.3 % (13-45); MEAN CORPUSCULAR HEMOGLOBIN 29.8 pg (27.0-33.4); MEAN CORPUSCULAR HGB CONC 32.5 g/dL (32.0-36.0); MEAN CORPUSCULAR VOLUME 92 fl (80-97); MONOCYTES % (AUTO) 9.2 % (3-13); PLATELET COUNT 185 10^3/uL (150-450); RED BLOOD COUNT 4.37 10^6/uL (3.72-5.28); RED CELL DISTRIBUTION WIDTH 13.4 % (11.5-14.0); TOTAL CELLS COUNTED % (AUTO) 100 %
[2020-01-12 08:55] LABS: ABSOLUTE EOSINOPHILS # (AUTO) 0.2 10^3/uL (0.0-0.6); ABSOLUTE LYMPHOCYTES (AUTO) 1.3 10^3/uL (0.5-4.7); ABSOLUTE MONOCYTES (AUTO) 0.4 10^3/uL (0.1-1.4); ABSOLUTE NEUT (AUTO) 2.1 10^3/uL (1.7-8.2); BASOPHILS % (AUTO) 0.7 % (0-2); EOSINOPHILS % (AUTO) 4.8 % (0-6); HEMATOCRIT 40.2 % (36.0-47.0); HEMOGLOBIN 13.1 g/dL (12.0-15.5); LYMPHOCYTES % (AUTO) 32.3 % (13-45); MEAN CORPUSCULAR HEMOGLOBIN 29.8 pg (27.0-33.4); MEAN CORPUSCULAR HGB CONC 32.5 g/dL (32.0-36.0); MEAN CORPUSCULAR VOLUME 92 fl (80-97); MONOCYTES % (AUTO) 9.2 % (3-13); PLATELET COUNT 185 10^3/uL (150-450); RED BLOOD COUNT 4.37 10^6/uL (3.72-5.28); RED CELL DISTRIBUTION WIDTH 13.4 % (11.5-14.0); TOTAL CELLS COUNTED % (AUTO) 100 %
[2020-01-12 09:13] LABS: ALBUMIN 3.8 g/dL (3.5-5.0); ALKALINE PHOSPHATASE 75 U/L (38-126); ANION GAP 6 (5-19); ASPARTATE AMINO TRANSFERASE 34 U/L (14-36); BILIRUBIN,TOTAL 0.4 mg/dL (0.2-1.3); BLOOD UREA NITROGEN 20 mg/dL (7-20); CALCIUM 9.2 mg/dL (8.4-10.2); CARBON DIOXIDE 24 mmol/L (22-30); CHLORIDE 107 mmol/L (98-107); GLUCOSE 87 mg/dL (75-110); POTASSIUM 4.2 mmol/L (3.6-5.0); TOTAL PROTEIN 6.3 g/dL (6.3-8.2); TRIGLYCERIDES 54 mg/dL (<150)
[2020-01-12 09:23] LABS: DIRECT LDL 44 mg/dL (<100)
[2020-01-12 09:31] LABS: ANION GAP 6 (5-19); BLOOD UREA NITROGEN 20 mg/dL (7-20); CALCIUM 9.2 mg/dL (8.4-10.2); CARBON DIOXIDE 24 mmol/L (22-30); CHLORIDE 107 mmol/L (98-107); GLUCOSE 87 mg/dL (75-110); POTASSIUM 4.2 mmol/L (3.6-5.0)
== END ==
LOC: OD 07:45
PROVIDERS: ATTEND Psychiatry & Neurology Psychiatry
DX: D50.9 Iron deficiency anemia, unspecified (principal); E11.22 Type 2 diabetes mellitus with diabetic chronic kidney disease; N18.2 Chronic kidney disease, stage 2 (mild); E55.9 Vitamin D deficiency, unspecified; F43.10 Post-traumatic stress disorder, unspecified; Z79.899 Other long term (current) drug therapy
CPT/HCPCS: 36415; 80053; 80061; 82306; 84443; 85025

== ENCOUNTER → 2020-03-13 | Outpatient (CLI) | payer BC, MEDICARE, OTHER ==
[2020-03-13 08:56] LABS: BLOOD UREA NITROGEN 18 mg/dL (7-20); CALCIUM 9.1 mg/dL (8.4-10.2); CHOLESTEROL 202.68 mg/dL (0-200); GLUCOSE 85 mg/dL (75-110); POTASSIUM 4.4 mmol/L (3.6-5.0); TRIGLYCERIDES 71 mg/dL (<150)
[2020-03-13 09:01] LABS: ANION GAP 5 (5-19); CARBON DIOXIDE 30 mmol/L (22-30); CHLORIDE 102 mmol/L (98-107)
[2020-03-13 09:07] LABS: DIRECT LDL 69 mg/dL (<100)
== END ==
LOC: OD 07:07
PROVIDERS: ATTEND Family Medicine Geriatric Medicine
DX: I10 Essential (primary) hypertension (principal); E55.9 Vitamin D deficiency, unspecified; E78.5 Hyperlipidemia, unspecified; Z79.899 Other long term (current) drug therapy
CPT/HCPCS: 36415; 80048; 80061; 82306; 84460